=== PATIENT | male | born 1965 | race Caucasian/White ===

== ENCOUNTER 2016-11-26 15:57 | Emergency (ER) | payer MEDICAID | END 2016-11-26 18:29 | disposition left against medical advice (07) | LOC: D.ER 15:57 | DX: M54.5 Low back pain (principal) ==

== ENCOUNTER 2016-11-28 19:09 | Emergency (ER) | payer MEDICAID | END 2016-11-28 20:45 | disposition home or self-care (01) | LOC: D.ER 19:09 | DX: S01.01XA Laceration without foreign body of scalp, initial encounter (principal); W22.8XXA Striking against or struck by other objects, initial encounter; Y93.89 Activity, other specified; Y92.019 Unspecified place in single-family (private) house as the place of occurrence of the external cause; S06.0X1A Concussion with loss of consciousness of 30 minutes or less, initial encounter; I10 Essential (primary) hypertension ==

== ENCOUNTER 2017-01-18 06:02 | Emergency (ER) | payer MEDICAID | END 2017-01-18 07:16 | disposition home or self-care (01) | LOC: D.ER 06:02 | DX: M54.2 Cervicalgia (principal); I10 Essential (primary) hypertension; F17.200 Nicotine dependence, unspecified, uncomplicated; F12.10 Cannabis abuse, uncomplicated ==

== ENCOUNTER 2017-01-21 19:33 | Emergency (ER) | payer MEDICAID ==
[2017-01-21 20:13] LABS: UDS - AMPHET NEGATIVE QUAL (NEGATIVE); UDS - BARB NEGATIVE QUAL (NEGATIVE); UDS - BENZO POSITIVE QUAL (NEGATIVE); UDS - COCAINE NEGATIVE QUAL (NEGATIVE); UDS - METH NEGATIVE QUAL (NEGATIVE); UDS - OPIATE POSITIVE QUAL (NEGATIVE); UDS - PCP NEGATIVE QUAL (NEGATIVE); UDS - THC POSITIVE QUAL (NEGATIVE)
== END 2017-01-21 22:24 | disposition home or self-care (01) ==
LOC: D.ER 19:33
PROVIDERS: Surgery
DX: M19.012 Primary osteoarthritis, left shoulder (principal); M48.32 Traumatic spondylopathy, cervical region; G47.00 Insomnia, unspecified

== ENCOUNTER 2017-04-01 22:56 | Emergency (ER) | payer MEDICAID ==
[2017-04-01 23:25] LABS: BASOPHILS 0.3 % (0-2); EOSINOPHILS 2.6 % (0-7); HEMATOCRIT 42.6 % (42.0-54.0); HEMOGLOBIN 14.6 g/dL (13.5-17.5); IMMATURE GRANULOCYTES 0.4 % (0-5); LYMPHOCYTES 21.3 % (15-50); MCH 30.9 pg (26.0-34.0); MCHC 34.3 g/dL (31.0-37.0); MCV 90.1 fL (80.0-100.0); MEAN PLATELET VOLUME 10.2 fL (7.4-10.4); MONOCYTES 7.4 % (2-11); PLATELET COUNT 255 10x3/uL (130-400); RBC 4.73 10x6/uL (4.20-6.10); RDW 13.8 % (11.5-14.5); WBC 10.1 10x3/uL (4.8-10.8)
[2017-04-01 23:37] LABS: ALBUMIN 3.6 g/dL (3.4-5.0); ALKALINE PHOSPHATASE 77 U/L (46-116); ALT (SGPT) 44 U/L (10-68); BILIRUBIN - TOTAL 0.41 mg/dL (0.2-1.3); CALC OSMOLALITY 281 mosm/kg (275-300); CALCIUM 9.3 mg/dL (8.5-10.1); CHLORIDE - SERUM 106 mmol/L (98-107); GLUCOSE 107 mg/dL (74-106); POTASSIUM - SERUM 3.9 mmol/L (3.5-5.1); PROTEIN - SERUM 7.5 g/dL (6.4-8.2); SODIUM 141 mmol/L (136-145); UREA NITROGEN 16 mg/dL (7-18); eGFR NON AFRICAN AMERICAN 84 mL/min (90-120)
[2017-04-01 23:48] LABS: CHOL - HDL RATIO 3.8 ratio (2.3-4.9); CHOLESTEROL, TOTAL 189 mg/dL (0-200); CKMB 1.2 U/L (0.0-3.6); CREATINE KINASE 150 UL (21-232); HDL CHOLESTEROL 50 mg/dL (32-96); LDL CHOLESTEROL 124 mg/dL (0-100); LDL-HDL RATIO 2.5 ratio (1.5-3.5); TRIGLYCERIDE 76 mg/dL (30-200); TROPONIN-I < 0.017 ng/mL (0.000-0.060)
== END 2017-04-01 23:48 | disposition left against medical advice (07) ==
LOC: D.ER 22:56
PROVIDERS: Emergency Medicine Emergency Medical Services
DX: R07.9 Chest pain, unspecified (principal)

== ENCOUNTER 2018-02-28 11:01 | Emergency (ER) | payer MEDICAID | END 2018-02-28 12:50 | disposition home or self-care (01) | LOC: D.ER 11:01 | DX: B86 Scabies (principal); I10 Essential (primary) hypertension; F17.200 Nicotine dependence, unspecified, uncomplicated ==

== ENCOUNTER 2018-05-14 12:24 | Emergency (ER) | payer MEDICAID ==
[~2018-05-14] VITALS: Ht 185.4 cm; Wt 94.1 kg
[2018-05-14 12:28] VITALS: BP 151/113; Ht 185.4 cm; Wt 94.1 kg
[2018-05-14 13:21] LABS: BASOPHILS 0.5 % (0-2); EOSINOPHILS 3.1 % (0-7); HEMATOCRIT 44.7 % (42.0-54.0); HEMOGLOBIN 15.3 g/dL (13.5-17.5); IMMATURE GRANULOCYTES 0.4 % (0-5); LYMPHOCYTES 26.9 % (15-50); MCH 30.4 pg (26.0-34.0); MCHC 34.2 g/dL (31.0-37.0); MCV 88.9 fL (80.0-100.0); MEAN PLATELET VOLUME 10.3 fL (7.4-10.4); MONOCYTES 7.8 % (2-11); NEUTROPHILS 61.3 % (40-80); PLATELET COUNT 253 10x3/uL (130-400); RBC 5.03 10x6/uL (4.20-6.10); RDW 14.2 % (11.5-14.5); WBC 9.3 10x3/uL (4.8-10.8)
[2018-05-14 13:37] LABS: ALBUMIN 3.8 g/dL (3.4-5.0); ALKALINE PHOSPHATASE 75 U/L (46-116); ALT (SGPT) 41 U/L (10-68); BILIRUBIN - TOTAL 0.39 mg/dL (0.2-1.3); CALC OSMOLALITY 279 mosm/kg (275-300); CALCIUM 8.9 mg/dL (8.5-10.1); CARBON DIOXIDE 28.7 mmol/L (21.0-32.0); CHLORIDE - SERUM 104 mmol/L (98-107); CREATININE - SERUM 0.9 mg/dL (0.6-1.3); GLUCOSE 78 mg/dL (74-106); POTASSIUM - SERUM 3.9 mmol/L (3.5-5.1); PROTEIN - SERUM 7.7 g/dL (6.4-8.2); SODIUM 140 mmol/L (136-145); UREA NITROGEN 17 mg/dL (7-18); eGFR NON AFRICAN AMERICAN > 90 mL/min (90-120)
[2018-05-14 13:48] LABS: CKMB 0.7 U/L (0.0-3.6); CREATINE KINASE 85 UL (21-232)
[2018-05-14 14:01] LABS: TROPONIN-I < 0.017 ng/mL (0.000-0.060)
== END 2018-05-14 15:50 | disposition left against medical advice (07) ==
LOC: D.ER 12:24
PROVIDERS: Family Medicine
DX: R42 Dizziness and giddiness (principal)

== ENCOUNTER 2019-11-10 08:13 | Emergency (ER) | payer OTHER ==
[~2019-11-10] VITALS: Ht 185.4 cm; Wt 72.7 kg
[2019-11-10 08:20] VITALS: BP 140/104; Ht 185.4 cm; Wt 72.7 kg
[2019-11-10] MEDS ORDERED: NAPROSYN500 MG PO (15:23)
== END 2019-11-10 10:48 | disposition home or self-care (01) ==
LOC: D.ER 08:13
DX: F43.20 Adjustment disorder, unspecified (principal); I10 Essential (primary) hypertension; Z72.0 Tobacco use

== ENCOUNTER 2019-11-10 14:42 | Emergency (ER) | payer OTHER ==
[~2019-11-10] VITALS: Ht 185.4 cm; Wt 77.3 kg
[2019-11-10 14:46] VITALS: Ht 185.4 cm; Wt 77.3 kg
[2019-11-10] MEDS ORDERED: NAPROSYN500 MG PO (15:23)
== END 2019-11-10 15:39 | disposition home or self-care (01) ==
LOC: D.ER 14:42
DX: M54.2 Cervicalgia (principal); I25.2 Old myocardial infarction; Z72.0 Tobacco use

== ENCOUNTER → 2020-01-19 09:26 | Outpatient (CLI) | payer OTHER ==
[2019-11-10 14:46] VITALS: BMI 22.4
--- NOTE | ~2020-01-19 | ST ---
PATIENT:ANDI MEJIA MEDICAL RECORD: [id number] SEX: M LOCATION:[facility] ORDER #: ADMISSION DATE: 01/19/20 AGE OF PATIENT: 54 REFERRING PHYSICIAN: INTERPRETING PHYSICIAN: BRUNILDA JIMENEZ MD DATE OF SERVICE: 01/19/2020 PROCEDURE: Nuclear stress test. INDICATION: Chest pain, hypertension, and coronary artery disease. PROCEDURE: The patient was exercised on standard Lexiscan protocol with 33 mCi of sestamibi injected at peak stress, 11 mCi used previously for rest images. FINDINGS: Gated SPECT reveals mildly depressed, but preserved ejection fraction at 47% with decreased thickening and brightening throughout the inferior segments. SPECT imaging Cardiolite was used as myocardial perfusion agent. There is a fixed perfusion defect inferiorly. This includes the basal, mid, apical, inferior segments. There is no evidence of reversible ischemia and in fact there was improvement with the defect with stress showing reversed redistribution. The remaining segments with homogeneous uptake at rest and stress. OVERALL IMPRESSION: This is a mildly abnormal nuclear stress test only showing a fixed perfusion defect inferiorly that improves with stress. No evidence of reversible ischemia, ejection fraction lower limits of normal to mildly depressed at 47%. Continue medical management of the coronary artery disease and cardiac risk factors. TRANSINT:[id number] Voice Confirmation ID: [id number] DOCUMENT ID: [id number] BRUNILDA JIMENEZ MD CC: LUCRECIA SCHILLING [id number] DICTATION DATE: 01/21/20 1147 CLINICAL ESTHETICIAN: 01/22/20 0008 DEP CLI 01/19/20 [place] [id number] [place] [id number]
[~2020-01-19 09:26] MED LIST: NAPROSYN500 MG PO
== END | disposition home or self-care (01) ==
LOC: D.HCCARDIO 09:26
PROVIDERS: ATTEND Internal Medicine Interventional Cardiology
DX: I25.119 Atherosclerotic heart disease of native coronary artery with unspecified angina pectoris (principal)

== ENCOUNTER 2020-02-17 00:28 | Observation (INO) | payer OTHER ==
[~2020-02-17] VITALS: Ht 185.4 cm; Wt 84.1 kg
[2020-02-17] VITALS (12 sets, daily range): BP systolic 108–195; BP diastolic 63–123; Ht 185.4 cm; Wt 84.1 kg
[2020-02-17] MEDS ORDERED: DEPAKOTE500 MG PO (00:34)
[2020-02-17] MEDS ORDERED: COREG 3.1253.125 MG PO (00:34)
[2020-02-17] MEDS ORDERED: ULTRAM50 MG PO (00:35)
[2020-02-17] MEDS ORDERED: LISINOPRIL-HCT1 EAC4 PO (00:35)
[2020-02-17] MEDS ORDERED: LIPITOR20 MG PO (00:35)
--- NOTE | 2020-02-17 00:46 | NUR ---
PT HAS CALL LIGHT ON, NURSE ASKED PT WHAT SHE COULD HELP HIM WITH. PT BECAME AGGREVATED, YELLING "GODDAMN, WHY DON'T YOU YELL A LITTLE LOUDER."
--- NOTE | 2020-02-17 00:48 | NUR ---
PT REQUESTING TO TALK TO OF [facility].
--- NOTE | 2020-02-17 00:54 | NUR ---
OFFERED PT ROLL SLICING MACHINE TENDER OFFICE NUMBER AND PT REFUSED AND REQUESTED NURSE TO CALL. WHEN ASKED WHAT WAS THE REASON PT STATED FOR INFORMATION ON HUMAN TRAFFICKING.
[2020-02-17 00:59] LABS: BASOPHILS 0.5 % (0-2); EOSINOPHILS 3.1 % (0-7); HEMATOCRIT 44.8 % (42.0-54.0); HEMOGLOBIN 14.3 g/dL (13.5-17.5); IMMATURE GRANULOCYTES 0.3 % (0-5); LYMPHOCYTES 23.4 % (15-50); MCH 28.8 pg (26.0-34.0); MCHC 31.9 g/dL (31.0-37.0); MCV 90.3 fL (80.0-100.0); MEAN PLATELET VOLUME 10.8 fL (7.4-10.4); MONOCYTES 10.5 % (2-11); NEUTROPHILS 62.2 % (40-80); RBC 4.96 10x6/uL (4.20-6.10)
[2020-02-17 01:03] LABS: PLATELET COUNT 312 10x3/uL (130-400)
[2020-02-17 01:09] LABS: APTT 31.2 SECONDS (22.8-39.4); INR 0.95 (0.85-1.17); PROTIME 12.6 SECONDS (11.6-15.0)
[2020-02-17 01:15] LABS: CALC OSMOLALITY 276 mosm/kg (275-300); CALCIUM 9.1 mg/dL (8.5-10.1); CARBON DIOXIDE 26.9 mmol/L (21.0-32.0); CHLORIDE - SERUM 102 mmol/L (98-107); GLUCOSE 93 mg/dL (74-106); POTASSIUM - SERUM 3.2 mmol/L (3.5-5.1); SODIUM 137 mmol/L (136-145); UREA NITROGEN 21 mg/dL (7-18); eGFR NON AFRICAN AMERICAN 83 mL/min (90-120)
--- NOTE | 2020-02-17 01:28 | NUR ---
JAEL BRONSON #[id number] ARRIVED TO SPEAK WITH PT AT PT'S REQUEST
[2020-02-17 01:31] LABS: ALBUMIN 3.4 g/dL (3.4-5.0); ALKALINE PHOSPHATASE 78 U/L (30-120); ALT (SGPT) 36 U/L (10-68); BILIRUBIN - TOTAL 0.45 mg/dL (0.2-1.3); CKMB 7.1 U/L (0.0-3.6); CREATINE KINASE 530 UL (21-232); MAGNESIUM - SERUM 2.1 mg/dL (1.8-2.4); PROTEIN - SERUM 7.4 g/dL (6.4-8.2); TROPONIN-I 0.049 ng/mL (0.000-0.060); VALPROIC ACID (DEPAKOTE) 1.5 ug/mL (50.0-100.0)
--- NOTE | 2020-02-17 01:40 | NUR ---
THIS NURSE ATTEMPTED TO COLLECT URINE FROM PT FOR A SECOND TIME, PT STATES "YOU HAVE NOT GIVEN ME ANYTHING TO DRINK. I HAVE NOT A DROP IN ME." THIS NURSE EXPLAINED THAT D/T PT COMPLAINT OF CP, THIS NURSE CANNOT GIVE WATER YET AND WILL SPEAK TO EDP ABOUT GIVING WATER. PT THEN SAID "WHY ARE YALL BEING SO RUDE? I KNOW WHY YOU WANT MY URINE, EVERYONE HAS ACCUSED ME OF BEING ON METHANPHETAMINE. HOW DO YOU KNOW I AM NOT TRYING? ARE YOU WATCHING ME?" EXPLAINED TO PT THAT EDP ORDERED URINE TO RUN LABS, CHECK KIDNEY FUNCTION. PT STATES THAT HE WILL TRY TO URINATE.
--- NOTE | 2020-02-17 03:24 | NUR ---
DOCTOR GOODE NOTIFIED AND REVIEWED ASSESSMENT FINDINGS. DOCTOR GOODE STATES PATIENT IS A LOW RISK PER ASSESSMENT. STATES TO EDUCATE AND GIVE RESOURCES UPON DISCHARGE.
--- NOTE | 2020-02-17 04:18 | NUR ---
TO BED BUT PT REFUSES TO ANSWER QUESTIONS VS AND WIEGHT TAKEN AND IV SET AT 100 BED LOW AND CALL LIGHT EXPLAINED AND PUT IN REACH
--- NOTE | 2020-02-17 07:20 | NUR ---
RECIEVE REPORT. RESTING IN BED WITH EYES CLOSED. NO SIGNS OF DISTRESS. SINUS RYTHM ON TELEMETRY. CONTINUE PLAN OF CARE AND SAFETY PRECAUTIONS.
[2020-02-17 09:37] LABS: BILIRUBIN NEGATIVE (NEGATIVE); GLUCOSE NEGATIVE (NEGATIVE); KETONE SMALL mg/dL (NEGATIVE); NITRITE NEGATIVE (NEGATIVE); SPECIFIC GRAVITY 1.015 (1.005-1.020)
[2020-02-17 09:44] LABS: UDS - AMPHET POSITIVE QUAL (NEGATIVE); UDS - BARB NEGATIVE QUAL (NEGATIVE); UDS - BENZO POSITIVE QUAL (NEGATIVE); UDS - COCAINE NEGATIVE QUAL (NEGATIVE); UDS - OPIATE NEGATIVE QUAL (NEGATIVE); UDS - PCP NEGATIVE QUAL (NEGATIVE); UDS - THC POSITIVE QUAL (NEGATIVE)
--- NOTE | 2020-02-17 16:04 | MORECARE ---
CASE MANAGEMENT DISCHARGE SUMMARY PATIENT: ANDI MEJIAALL UNIT: [id number] ADM DATE: 02/17/20 AGE: 54 : 67 SEX: M ROOM/BED: D.2126 AUTHOR: LORI RIVER PHYSICIAN: REFERRING PHYSICIAN: ALEX GUTIERREZ MD DATE OF SERVICE: 02/17/20 Discharge Plan Patient Name: ANDI MEJIA Facility: [facility]:[place] : 1965 Planned Disposition: Psych facility Anticipated Discharge Date: Discharge Date: Expected LOS: Initial Reviewer: [email or web address] Initial Review Date: 02/17/2020 Generated: 02/17/20 5:04 pm Patient Name: ANDI MEJIA Page [phone] at 1604 All edits/amendments must be made on the electronic document DICTATION DATE: 02/17/201603 NAIL FEEDER: NICK 02/17/20 1604 RPT#: [id number] DC DATE: STATUS: ADM IN [facility] [address] [place] [address] END OF REPORT
--- NOTE | 2020-02-17 16:12 | MORECARE ---
CASE MANAGEMENT DISCHARGE SUMMARY PATIENT: ANDI MEJIA LESTER UNIT: [id number] ADM DATE: 02/17/20 AGE: 54 : 67 SEX: M ROOM/BED: D.2126 AUTHOR: ALETADOC PHYSICIAN: REFERRING PHYSICIAN: ALEX GUTIERREZ MD DATE OF SERVICE: 02/17/20 Discharge Plan Patient Name: ANDI MEJIA Facility: [facility]:[place] : 1965 Planned Disposition: Psych facility Anticipated Discharge Date: Discharge Date: Expected LOS: Initial Reviewer: [id number] Initial Review Date: 02/17/2020 Generated: 02/17/20 5:12 pm Comments DCP- Discharge Planning Updated by [id number]: Deb Bond on 02/17/20 3:[address] Patient Name: ANDI MEJIA Admission Status: ER Accout number: [id number] Admission Date: 02-17-2020 : 1965 Admission Diagnosis: Attending: ALEX GUTIERREZ Current LOS: 1 Anticipated DC Date: Planned Disposition: Psych facility Primary Insurance: [employer]ICA[employer] Discharge Planning Comments: CM met with patient to complete initial dc planning assessment. CM educated patient on the CM role and verbal consent given by patient to complete assessment. Patient is homeless. CM informed patient that Dr. Delarosa recommends inpatient psychiatric placement and patient agrees. He states he has been at [facility] before and that is his preference, however realizes that he may have to go elsewhere. He is going to have an echocardiogram, he refused his heart cath tomorrow. I will call transfer center when medically stable. CM will continue to follow and will assist as needed with dc plans/needs. Hod Carrier: Deb Bond DCPIA - Discharge Planning Initial Assessment Updated by [email or web address]: Deb Bond on 02/17/20 4:05 pm * Is the patient Alert and Oriented? Yes * PCP Dr. Mesa * Pharmacy [facility] * Preadmission Environment Homeless * ADLs Independent * Equipment None * List name and contact numbers for known caregivers / representatives who currently or will assist patient after discharge: No contact information * Community resources currently utilized None * Additional services required to return to the preadmission environment? Yes * Can the patient safely return to the preadmission environment? No * Has this patient been hospitalized within the prior 30 days at any hospital? No Last DP export: 02/17/20 3:04 p Patient Name: ANDI MEJIA Page [id number] at 1612 All edits/amendments must be made on the electronic document DICTATION DATE: 02/17/201611 INTEGRATED CIRCUIT DESIGN ENGINEER: NICK 02/17/201611 RPT#: [id number] DC DATE: STATUS: ADM IN [facility] [address] [place] [address] END OF REPORT
--- NOTE | 2020-02-17 16:22 | NUR ---
ALERT AND ORIENTED X4. SHOWER AND LINEN CHANGE COMPLETE. REFUSE HEART CATH. SINUS RYTHM ON TELEMETRY. DENIES ANY NEEDS. CONTINUE PLAN OF CARE AND SAFETY PRECAUTIONS.
--- NOTE | 2020-02-18 01:50 | NUR ---
I have reviewed this patient and I concur with the Shift Assessment completed by the Licensed Practical Nurse today this shift.
[2020-02-18 05:29] VITALS: BP 109/59
[2020-02-18 05:53] LABS: BASOPHILS 0.5 % (0-2); EOSINOPHILS 5.4 % (0-7); HEMATOCRIT 46.4 % (42.0-54.0); HEMOGLOBIN 14.8 g/dL (13.5-17.5); IMMATURE GRANULOCYTES 0.3 % (0-5); MCH 28.7 pg (26.0-34.0); MCHC 31.9 g/dL (31.0-37.0); MCV 90.1 fL (80.0-100.0); MEAN PLATELET VOLUME 10.4 fL (7.4-10.4); MONOCYTES 8.3 % (2-11); NEUTROPHILS 58.5 % (40-80); PLATELET COUNT 258 10x3/uL (130-400); RBC 5.15 10x6/uL (4.20-6.10); RDW 14.4 % (11.5-14.5); WBC 6.5 10x3/uL (4.8-10.8)
[2020-02-18 06:18] LABS: ALKALINE PHOSPHATASE 70 U/L (30-120); ALT (SGPT) 32 U/L (10-68); BILIRUBIN - TOTAL 0.34 mg/dL (0.2-1.3); CALC OSMOLALITY 274 mosm/kg (275-300); CALCIUM 8.6 mg/dL (8.5-10.1); CARBON DIOXIDE 24.6 mmol/L (21.0-32.0); CHLORIDE - SERUM 103 mmol/L (98-107); CREATININE - SERUM 0.9 mg/dL (0.6-1.3); GLUCOSE 101 mg/dL (74-106); PROTEIN - SERUM 6.9 g/dL (6.4-8.2); SODIUM 137 mmol/L (136-145); UREA NITROGEN 16 mg/dL (7-18); eGFR NON AFRICAN AMERICAN > 90 mL/min (90-120)
[2020-02-18 06:20] LABS: POTASSIUM - SERUM 3.9 mmol/L (3.5-5.1)
--- NOTE | 2020-02-18 07:35 | NUR ---
ASSESSMENT DONE. DENIES NEEDS
[2020-02-18 08:40] VITALS: BP 110/78
--- NOTE | 2020-02-18 09:39 | CN ---
PATIENT NAME:ANDI MEJIA MEDICAL RECORD: [id number] : 67 LOCATION:D.Ge D.2126 ADMIT DATE: 02/17/20 ACCOUNT: [id number] CONSULTING PHYSICIAN: RIVAS GOODE MD REFERRING PHYSICIAN: ALEX GUTIERREZ MD DATE OF CONSULTATION: 02/17/2020 PSYCHIATRIC CONSULTATION IDENTIFYING DATA: The patient is 54 years old and he is admitted to the hospital secondary to chest pain. CHIEF COMPLAINT: None. HISTORY OF PRESENT ILLNESS: The patient has behaved very bizarrely. He has had mood lability and a number of stories that sound superficially delusional. He is easily angered. He goes from crying to laughing within the space of less than a minute. He tells me a number of stories that are delusional or at least sounds delusional. 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 He knows the occupants are armed and wanting to hurt him. He feels frightened here at the hospital as well. MENTAL STATUS EXAMINATION: The patient is awake, alert and oriented to person, place and somewhat to time and situation. His mood is anxious. His affect is labile. Thought processes are disorganized and contained delusional content. He says he would not hurt himself and he does not believe he is having any paranoid delusions, but he also says that he will harm anyone who tries to harm him. By that he is saying he will use self defense to defend himself. Unfortunately, he has a generalized view that people are somehow a danger to him and this necessitates inpatient care. ASSESSMENT: 1. Schizoaffective disorder by history. 2. Polysubstance abuse. PLAN: The patient's Depakote level, which is the medication he is supposed to be taking is 1.5. Obviously, he has not been taking it at all. He did have amphetamines in his urine as well as benzodiazepine and marijuana. He does have a history of inpatient psychiatric care and has been to multiple hospitals including the [facility] in the past. Given the fact that he has this paranoid delusion that others are "after him", he is a potentially dangerous man and requires inpatient psychiatric care. He should be transferred to inpatient psychiatric care as soon as it is practical to do so. I will initiate some mood stabilizing antipsychotic medications now in anticipation of that being more adequately addressed once he is transferred to an inpatient facility. TRANSINT:[id number] Voice Confirmation ID: [id number] DOCUMENT ID: [id number] CONSULT REPORT [id number] ANDI MEJIA PETER MD at 0939 CC: [id number] DICTATION DATE: 02/17/20 1237 ASSURANCE SENIOR: 02/17/20 1538 ADM IN [facility] [address] [place] [id number]
[2020-02-18 11:29] VITALS: BP 100/72
--- NOTE | 2020-02-18 12:46 | NUR ---
I have reviewed this patient and I concur with the Shift Assessment completed by the Licensed Practical Nurse today this shift.
--- NOTE | 2020-02-18 13:07 | MORECARE ---
CASE MANAGEMENT DISCHARGE SUMMARY PATIENT: ANDI MEJIA FRANKLIN UNIT: [id number] ADM DATE: 02/17/20 AGE: 54 : 67 SEX: M ROOM/BED: D.2126 AUTHOR: ALETADOC PHYSICIAN: REFERRING PHYSICIAN: ALEX GUTIERREZ MD DATE OF SERVICE: 02/18/20 Discharge Plan Patient Name: ANDI MEJIA Facility: [facility]:[place] : 1965 Planned Disposition: Psych facility Anticipated Discharge Date: Discharge Date: Expected LOS: Initial Reviewer: [email or web address] Initial Review Date: 02/17/2020 Generated: 02/18/20 2:07 pm Comments DCP- Discharge Planning Updated by [email or web address]: Deb Bond on 02/17/20 3:[address] Patient Name: ANDI MEJIA Admission Status: ER Accout number: [id number] Admission Date: 02-17-2020 : 1965 Admission Diagnosis: Attending: ALEX GUTIERREZ Current LOS: 1 Anticipated DC Date: Planned Disposition: Psych facility Primary Insurance: [employer]ICA[employer] Discharge Planning Comments: CM met with patient to complete initial dc planning assessment. CM educated patient on the CM role and verbal consent given by patient to complete assessment. Patient is homeless. CM informed patient that Dr. Delarosa recommends inpatient psychiatric placement and patient agrees. He states he has been at [facility] before and that is his preference, however realizes that he may have to go elsewhere. He is going to have an echocardiogram, he refused his heart cath tomorrow. I will call transfer center when medically stable. CM will continue to follow and will assist as needed with dc plans/needs. Direct Chill Casting Operator: Deb Bond DCPIA - Discharge Planning Initial Assessment Updated by [email or web address]: Deb Bond on 02/17/20 4:05 pm * Is the patient Alert and Oriented? Yes * PCP Dr. Mesa * Pharmacy [facility] * Preadmission Environment Homeless * ADLs Independent * Equipment None * List name and contact numbers for known caregivers / representatives who currently or will assist patient after discharge: No contact information * Community resources currently utilized None * Additional services required to return to the preadmission environment? Yes * Can the patient safely return to the preadmission environment? No * Has this patient been hospitalized within the prior 30 days at any hospital? No External Providers External Provider: [facility] Next Contact Date: Service Request Date: Service Type: Resolution: Reviewer: Comments: Last DP export: 02/17/20 3:12 p Patient Name: ANDI MEJIA Page 24858 at 1307 All edits/amendments must be made on the electronic document DICTATION DATE: 02/18/20 1307 CLINICAL ORTHOPTIST: NICK 02/18/20 1307 RPT#: [id number] DC DATE: STATUS: ADM IN [facility] [address] [place] [address] END OF REPORT
--- NOTE | 2020-02-18 13:15 | MORECARE ---
CASE MANAGEMENT DISCHARGE SUMMARY PATIENT: ANDI MEJIAALL UNIT: [id number] ADM DATE: 02/17/20 AGE: 54 : 67 SEX: M ROOM/BED: D.2126 AUTHOR: ALETADOC PHYSICIAN: REFERRING PHYSICIAN: ALEX GUTIERREZ MD DATE OF SERVICE: 02/18/20 Discharge Plan Patient Name: ANDI MEJIA Facility: [facility]:[place] : 1965 Planned Disposition: Psych facility Anticipated Discharge Date: Discharge Date: Expected LOS: Initial Reviewer: [email or web address] Initial Review Date: 02/17/2020 Generated: 02/18/20 2:15 pm Comments DCP- Discharge Planning Updated by [email or web address]: Deb Bond on 02/18/20 12:[address] Spoke with Isabel and she states to start transfer process for inpatient psychiatric care. I called the transfer team and spoke with Gladis and clinical faxed after administration approval from Dorita (senior housekeeper). CM will continue to follow and assist with discharge planning/needs. DCP- Discharge Planning Updated by [email or web address]: Deb Bond on 02/17/20 3:[address] Patient Name: ANDI MEJIA Admission Status: ER Accout number: [id number] Admission Date: 02-17-2020 : 1965 Admission Diagnosis: Attending: ALEX GUTIERREZ Current LOS: 1 Anticipated DC Date: Planned Disposition: Psych facility Primary Insurance: [employer]ICAID Discharge Planning Comments: CM met with patient to complete initial dc planning assessment. CM educated patient on the CM role and verbal consent given by patient to complete assessment. Patient is homeless. CM informed patient that Dr. Delarosa recommends inpatient psychiatric placement and patient agrees. He states he has been at [facility] before and that is his preference, however realizes that he may have to go elsewhere. He is going to have an echocardiogram, he refused his heart cath tomorrow. I will call transfer center when medically stable. CM will continue to follow and will assist as needed with dc plans/needs. Obstetrics Scrub Nurse: Deb Bond DCPIA - Discharge Planning Initial Assessment Updated by [email or web address]: Deb Bond on 02/17/20 4:05 pm * Is the patient Alert and Oriented? Yes * PCP Dr. Mesa * Pharmacy [facility] * Preadmission Environment Homeless * ADLs Independent * Equipment None * List name and contact numbers for known caregivers / representatives who currently or will assist patient after discharge: No contact information * Community resources currently utilized None * Additional services required to return to the preadmission environment? Yes * Can the patient safely return to the preadmission environment? No * Has this patient been hospitalized within the prior 30 days at any hospital? No Last DP export: 02/18/20 12:07 p Patient Name: ANDI MEJIA Page [id number] at 1315 All edits/amendments must be made on the electronic document DICTATION DATE: 02/18/201314 BAG CHECKER: NICK 02/18/20 1315 RPT#: [id number] DC DATE: STATUS: ADM IN [facility] [address] [place] [address] END OF REPORT
[2020-02-18 20:00] VITALS: BP 116/74
--- NOTE | 2020-02-19 02:24 | NUR ---
I have reviewed this patient and I concur with the Shift Assessment completed by the Licensed Practical Nurse today this shift.
[2020-02-19 04:00] VITALS: BP 116/76
--- NOTE | 2020-02-19 05:32 | NUR ---
SPOKE WITH MATTEO, FROM THE TRANSFER CENTER, SHE INFORMED THIS NURSE THAT DR PRIETO AT [facility] WILL ACCEPT PT WITH A NEGATIVE COVID TEST. COVID SWAB DONE ORDERED AND TAKEN TO LAB.
[2020-02-19 05:58] LABS: BASOPHILS 0.6 % (0-2); EOSINOPHILS 4.8 % (0-7); HEMATOCRIT 46.6 % (42.0-54.0); IMMATURE GRANULOCYTES 0.6 % (0-5); MCHC 32.2 g/dL (31.0-37.0); MEAN PLATELET VOLUME 10.1 fL (7.4-10.4); MONOCYTES 9.6 % (2-11); NEUTROPHILS 51.4 % (40-80); PLATELET COUNT 259 10x3/uL (130-400); RBC 5.18 10x6/uL (4.20-6.10); RDW 14.2 % (11.5-14.5); WBC 6.3 10x3/uL (4.8-10.8)
[2020-02-19 06:25] LABS: ALKALINE PHOSPHATASE 74 U/L (30-120); ALT (SGPT) 26 U/L (10-68); BILIRUBIN - TOTAL 0.25 mg/dL (0.2-1.3); CALC OSMOLALITY 273 mosm/kg (275-300); CALCIUM 8.8 mg/dL (8.5-10.1); CARBON DIOXIDE 27.6 mmol/L (21.0-32.0); CHLORIDE - SERUM 101 mmol/L (98-107); CREATININE - SERUM 0.9 mg/dL (0.6-1.3); GLUCOSE 93 mg/dL (74-106); MAGNESIUM - SERUM 2.1 mg/dL (1.8-2.4); PHOSPHOROUS 4.8 mg/dL (2.5-4.9); POTASSIUM - SERUM 4.2 mmol/L (3.5-5.1); PROTEIN - SERUM 6.5 g/dL (6.4-8.2); SODIUM 136 mmol/L (136-145); UREA NITROGEN 18 mg/dL (7-18); eGFR NON AFRICAN AMERICAN > 90 mL/min (90-120)
--- NOTE | 2020-02-19 07:20 | NUR ---
ASSESSMENT DONE. DENIES NEEDS
--- NOTE | 2020-02-19 07:45 | MORECARE ---
CASE MANAGEMENT DISCHARGE SUMMARY PATIENT: ANID MEJIA RADHA UNIT: [id number] ADM DATE: 02/17/20 AGE: 54 : 67 SEX: M ROOM/BED: D.2126 AUTHOR: LORI RIVER PHYSICIAN: REFERRING PHYSICIAN: ALEX GUTIERREZ MD DATE OF SERVICE: 02/19/20 Discharge Plan Patient Name: ANDI MEJIA Facility: [facility]:[place] : 1965 Planned Disposition: Psych facility Anticipated Discharge Date: Discharge Date: Expected LOS: Initial Reviewer: [email or web address] Initial Review Date: 02/17/2020 Generated: 02/19/20 8:44 am Comments DCP- Discharge Planning Updated by [email or web address]: Deb Amarorachelle on 02/19/20 6:[address] Notified by transfer team that patient was denied by [facility] per physician denial. I informed them to continue to search for inpatient psychiatric bed. CM will continue to follow and assist with discharge planning/needs. DCP- Discharge Planning Updated by [email or web address]: Deb Amarorachelle on 02/18/20 12:[address] Spoke with Isabel and she states to start transfer process for inpatient psychiatric care. I called the transfer team and spoke with Gladis and clinical faxed after administration approval from Dorita (house visitor). CM will continue to follow and assist with discharge planning/needs. DCP- Discharge Planning Updated by [email or web address]: Deb Bond on 02/17/20 3:[address] Patient Name: ANDI MEJIA Admission Status: ER Accout number: [id number] Admission Date: 02-17-2020 : 1965 Admission Diagnosis: Attending: ALEX GUTIERREZ Current LOS: 1 Anticipated DC Date: Planned Disposition: Psych facility Primary Insurance: [employer] MEDICAID Discharge Planning Comments: CM met with patient to complete initial dc planning assessment. CM educated patient on the CM role and verbal consent given by patient to complete assessment. Patient is homeless. CM informed patient that Dr. Delarosa recommends inpatient psychiatric placement and patient agrees. He states he has been at [facility] before and that is his preference, however realizes that he may have to go elsewhere. He is going to have an echocardiogram, he refused his heart cath tomorrow. I will call transfer center when medically stable. CM will continue to follow and will assist as needed with dc plans/needs. Core Setter: Deb Bond DCPIA - Discharge Planning Initial Assessment Updated by [email or web address]: Deb Bond on 02/17/20 4:05 pm * Is the patient Alert and Oriented? Yes * PCP Dr. Mesa * Pharmacy [facility] * Preadmission Environment Homeless * ADLs Independent * Equipment None * List name and contact numbers for known caregivers / representatives who currently or will assist patient after discharge: No contact information * Community resources currently utilized None * Additional services required to return to the preadmission environment? Yes * Can the patient safely return to the preadmission environment? No * Has this patient been hospitalized within the prior 30 days at any hospital? No Last DP export: 02/18/20 12:15 p Patient Name: ANDI MEJIA Page 26169 at 0745 All edits/amendments must be made on the electronic document DICTATION DATE: 02/19/2044 GUIDANCE SERVICES COORDINATOR: DM 02/19/20 0744 RPT#: [id number] DC DATE: STATUS: ADM IN [facility] [address] [place] [address] END OF REPORT
--- NOTE | 2020-02-19 10:19 | NUR ---
I have reviewed this patient and I concur with the Shift Assessment completed by the Licensed Practical Nurse today this shift.
[2020-02-19 11:09] VITALS: BP 136/83
--- NOTE | 2020-02-19 11:10 | MORECARE ---
CASE MANAGEMENT DISCHARGE SUMMARY PATIENT: ANDI MEJIAALL UNIT: [id number] ADM DATE: 02/17/20 AGE: 54 : 67 SEX: M ROOM/BED: D.2126 AUTHOR: LORI RIVER PHYSICIAN: REFERRING PHYSICIAN: ALEX GUTIERREZ MD DATE OF SERVICE: 02/19/20 Discharge Plan Patient Name: ANDI MEJIA Facility: [facility]:[place] : 1965 Planned Disposition: Psych facility Anticipated Discharge Date: Discharge Date: Expected LOS: Initial Reviewer: [email or web address] Initial Review Date: 02/17/2020 Generated: 02/19/20 12:10 pm Comments DCP- Discharge Planning Updated by [email or web address]: Deb Bond on 02/19/20 10:[address] I have been notified that patient has been accepted by Dr. Boyle at [facility] for inpatient psychiatric unit, but he must have a negative Covid - 19 test. It has been collected. DCP- Discharge Planning Updated by [email or web address]: Deb Bond on 02/19/20 6:[address] Notified by transfer team that patient was denied by [facility] per physician denial. I informed them to continue to search for inpatient psychiatric bed. CM will continue to follow and assist with discharge planning/needs. DCP- Discharge Planning Updated by [email or web address]: Deb Bond on 02/18/20 12:[address] Spoke with Isabel and she states to start transfer process for inpatient psychiatric care. I called the transfer team and spoke with Gladis and clinical faxed after administration approval from Dorita (retail warehouse supervisor). CM will continue to follow and assist with discharge planning/needs. DCP- Discharge Planning Updated by [email or web address]: Deb Bond on 02/17/20 3:[address] Patient Name: ANDI MEJIA Admission Status: ER Accout number: [id number] Admission Date: 02-17-2020 : 1965 Admission Diagnosis: Attending: ALEX GUTIERREZ Current LOS: 1 Anticipated DC Date: Planned Disposition: Psych facility Primary Insurance: [employer]ICAID Discharge Planning Comments: CM met with patient to complete initial dc planning assessment. CM educated patient on the CM role and verbal consent given by patient to complete assessment. Patient is homeless. CM informed patient that Dr. Delarosa recommends inpatient psychiatric placement and patient agrees. He states he has been at [facility] before and that is his preference, however realizes that he may have to go elsewhere. He is going to have an echocardiogram, he refused his heart cath tomorrow. I will call transfer center when medically stable. CM will continue to follow and will assist as needed with dc plans/needs. Recruiting Operations Consultant: Deb Bond DCPIA - Discharge Planning Initial Assessment Updated by [email or web address]: Deb Bond on 02/17/20 4:05 pm * Is the patient Alert and Oriented? Yes * PCP Dr. Mesa * Pharmacy [facility] * Preadmission Environment Homeless * ADLs Independent * Equipment None * List name and contact numbers for known caregivers / representatives who currently or will assist patient after discharge: No contact information * Community resources currently utilized None * Additional services required to return to the preadmission environment? Yes * Can the patient safely return to the preadmission environment? No * Has this patient been hospitalized within the prior 30 days at any hospital? No Last DP export: 02/19/20 6:45 a Patient Name: ANDI MEJIA Page [id number] at 1110 All edits/amendments must be made on the electronic document DICTATION DATE: 02/19/20 1110 CANINE DEPUTY: NICK 02/19/20 1110 RPT#: [id number] DC DATE: STATUS: ADM IN [facility] [address] [place] [address] END OF REPORT
--- NOTE | 2020-02-19 13:01 | PN ---
PATIENT:ANDI MEJIA MEDICAL RECORD: [id number] LOCATION:D. D.212 ADMISSION DATE: 02/17/20 PROGRESS NOTE DATE OF SERVICE: 02/18/2020 SUBJECTIVE: The patient's case was discussed with staff. He has no new complaint. OBJECTIVE: The patient is in better behavioral control. He is still delusional and showing mood lability. He denies that he would seek to harm himself or others. ASSESSMENT: Schizoaffective disorder, bipolar type. PLAN: Current medicines have been reviewed and will be maintained. I recommend he be transferred to acute inpatient psychiatric care as soon as it is possible to do so. TRANSINT:[id number] Voice Confirmation ID: [id number] DOCUMENT ID: [id number] RIVAS GOODE MD at 1301 CC: [id number] DICTATION DATE: 02/18/20 1646 MEDICAL HOSPITAL SALES: 02/19/20 0034 ADM IN [facility] [address] [place] [id number]
[2020-02-19 13:49] VITALS: BP 123/91
[2020-02-19 18:31] VITALS: BP 102/74
[2020-02-19 20:00] VITALS: BP 124/87
--- NOTE | 2020-02-20 02:49 | NUR ---
I have reviewed this patient and I concur with the Shift Assessment completed by the Licensed Practical Nurse today this shift.
[2020-02-20 04:00] VITALS: BP 115/77
[2020-02-20 05:32] LABS: BASOPHILS 0.6 % (0-2); EOSINOPHILS 4.5 % (0-7); HEMATOCRIT 48.9 % (42.0-54.0); HEMOGLOBIN 15.7 g/dL (13.5-17.5); IMMATURE GRANULOCYTES 0.7 % (0-5); LYMPHOCYTES 29.7 % (15-50); MCHC 32.1 g/dL (31.0-37.0); MCV 90.4 fL (80.0-100.0); MEAN PLATELET VOLUME 10.2 fL (7.4-10.4); MONOCYTES 8.3 % (2-11); NEUTROPHILS 56.2 % (40-80); PLATELET COUNT 268 10x3/uL (130-400); RBC 5.41 10x6/uL (4.20-6.10); RDW 14.3 % (11.5-14.5); WBC 7.1 10x3/uL (4.8-10.8)
[2020-02-20 06:30] LABS: ALBUMIN 3.2 g/dL (3.4-5.0); ALKALINE PHOSPHATASE 71 U/L (30-120); BILIRUBIN - TOTAL 0.26 mg/dL (0.2-1.3); CALC OSMOLALITY 274 mosm/kg (275-300); CALCIUM 8.9 mg/dL (8.5-10.1); CARBON DIOXIDE 28.4 mmol/L (21.0-32.0); CHLORIDE - SERUM 99 mmol/L (98-107); CREATININE - SERUM 0.9 mg/dL (0.6-1.3); GLUCOSE 95 mg/dL (74-106); MAGNESIUM - SERUM 2.2 mg/dL (1.8-2.4); PHOSPHOROUS 4.5 mg/dL (2.5-4.9); POTASSIUM - SERUM 4.3 mmol/L (3.5-5.1); SODIUM 136 mmol/L (136-145); UREA NITROGEN 21 mg/dL (7-18); eGFR NON AFRICAN AMERICAN > 90 mL/min (90-120)
[2020-02-20 06:33] LABS: ALT (SGPT) 34 U/L (10-68)
--- NOTE | 2020-02-20 07:50 | NUR ---
ASSESSMENT DONE. DENIES NEEDS
[2020-02-20 08:27] VITALS: BP 114/78
[2020-02-20 11:52] VITALS: BP 115/73
[2020-02-20 15:44] VITALS: BP 123/85
[2020-02-20 20:30] VITALS: BP 136/84
--- NOTE | 2020-02-21 00:04 | NUR ---
INITIAL ORUNDS COMPLETED AT 1915 HRS. PT RESTING WITH EYES CLOSED. RESP EVEN AND REGULAR. ASSESSMENT COMPLETED AT 2205 HRS. VSS. REFUSES TELEMETRY. ALERT AND ORIENTED TO PERSON, PLACE AND TIME. CUEVAS. IV TO RAC OCCLUDED. DC'D WITH CATHETER INTACT. PT REFUSED ANOTHER IV. LUNGS DIMINISHED IN BASES BILAT. PT CURRENTLY RESTING WITH EYES CLOSED. RESP EVEN AND REGULAR. SR UP X2, CALL LIGHT WITHIN REACH.
[2020-02-21 00:30] VITALS: BP 102/73
--- NOTE | 2020-02-21 01:48 | NUR ---
PT RESTING WITH EYES CLOSED. RESP EVEN AND REGULAR. SR UP X1, CALL LIGHT WITHIN REACH.
--- NOTE | 2020-02-21 04:14 | NUR ---
PT RESTING WITH EYES CLOSED. RESP EVEN AND REGULAR. SR UP X2, CALL LIGHT WITHIN REACH.
[2020-02-21 04:45] VITALS: BP 109/78
[2020-02-21 05:13] LABS: BASOPHILS 0.4 % (0-2); EOSINOPHILS 3.1 % (0-7); HEMATOCRIT 48.6 % (42.0-54.0); HEMOGLOBIN 15.8 g/dL (13.5-17.5); IMMATURE GRANULOCYTES 0.5 % (0-5); LYMPHOCYTES 23.8 % (15-50); MCH 29.2 pg (26.0-34.0); MCHC 32.5 g/dL (31.0-37.0); MCV 89.8 fL (80.0-100.0); MEAN PLATELET VOLUME 10.2 fL (7.4-10.4); MONOCYTES 7.2 % (2-11); PLATELET COUNT 262 10x3/uL (130-400); RBC 5.41 10x6/uL (4.20-6.10); RDW 14.4 % (11.5-14.5); WBC 8.5 10x3/uL (4.8-10.8)
[2020-02-21 06:12] LABS: ALBUMIN 3.1 g/dL (3.4-5.0); ALKALINE PHOSPHATASE 68 U/L (30-120); ALT (SGPT) 32 U/L (10-68); BILIRUBIN - TOTAL 0.41 mg/dL (0.2-1.3); CALC OSMOLALITY 273 mosm/kg (275-300); CALCIUM 8.9 mg/dL (8.5-10.1); CARBON DIOXIDE 24.7 mmol/L (21.0-32.0); CHLORIDE - SERUM 98 mmol/L (98-107); GLUCOSE 96 mg/dL (74-106); MAGNESIUM - SERUM 2.2 mg/dL (1.8-2.4); POTASSIUM - SERUM 4.3 mmol/L (3.5-5.1); PROTEIN - SERUM 7.4 g/dL (6.4-8.2); SODIUM 135 mmol/L (136-145); UREA NITROGEN 24 mg/dL (7-18); eGFR NON AFRICAN AMERICAN 83 mL/min (90-120)
--- NOTE | 2020-02-21 06:24 | NUR ---
VSS THROUGHOTU NIGHT. PT DENIED ANY DISCOMFORT. NEEDS MET; WILL CONTINUE TO MONITOR.
--- NOTE | 2020-02-21 07:10 | NUR ---
REPORT RECEIVED FROM CLINICAL NURSING INSTRUCTOR AND PATIENT CARE ASSUMED. PATIENT LAYING IN BED ON RT SIDE WITH EYES CLOSED AND BREATHING EVENLY. WILL CONTINUE WITH PLAN OF CARE. SR UPX 2 BED IN LOW POSITION AND CALL LIGHT IN REACH.
[2020-02-21 10:10] VITALS: BP 136/59
[2020-02-21 12:00] VITALS: BP 111/79
--- NOTE | 2020-02-21 14:38 | NUR ---
PATIENT LAYING IN BED WATCHING TV. PATIENT IS STABLE AND VSS. PATIENT DENIES ANY NEEDS OR PAIN. CM HAS MET WITH PATIENT AND TRANSFER TO [facility] INPATIENT PSYCH UNIT IN PLACE. CM WILL NOTIFY WHEN PATIENT CAN BE TRANSFERED.
[2020-02-21 16:00] VITALS: BP 119/77
--- NOTE | 2020-02-21 20:23 | NUR ---
INITIAL ROUNDS COMPLETED AT 191 HRS. PT RESTING WITH EYES CLOSED. RESP EVEN AND REGULAR. ASSESSMENT COMPLETED AT 193 HRS. NO IV. ALERT AND ORIENTED TO PERSON, PLACE AND TIME. CUEVAS. LUNGS DIMINISHED IN BASES BILAT. PT VERY COOPERATIVE. CALL LIGHT WITHIN REACH.
[2020-02-21 20:30] VITALS: BP 110/71
--- NOTE | 2020-02-21 22:07 | NUR ---
PM MEDS GIVEN. PT CURRENTLY RESTING WITH EYES CLOSED. RESP EVEN AND REGULAR. SR UP X1, CALL LIGHT WITHIN REACH.
--- NOTE | 2020-02-22 00:34 | NUR ---
PT RESTING WITH EYES CLOSED. RESP EVEN AND REGULAR. CALL LIGHT WITHIN REACH.
--- NOTE | 2020-02-22 02:10 | NUR ---
PT RESTING WITH EYES CLOSED. RESP EVEN AND REGULAR. CALL LIGHT WITHIN REACH.
--- NOTE | 2020-02-22 04:01 | NUR ---
PT RESTING WITH EYES CLOSED. RESP EVEN AND REGULAR. SR UP X2, CALL LIGHT WITHIN REACH.
[2020-02-22 04:30] VITALS: BP 103/72
--- NOTE | 2020-02-22 06:23 | NUR ---
VSS THROUGHOUT NIGHT. PT DENIED ANY DISCOMFORT. NEEDS MET; WILL CONTINUE TO MONITOR.
[2020-02-22 06:56] LABS: BASOPHILS 0.9 % (0-2); EOSINOPHILS 4.2 % (0-7); HEMATOCRIT 47.2 % (42.0-54.0); HEMOGLOBIN 15.3 g/dL (13.5-17.5); IMMATURE GRANULOCYTES 0.9 % (0-5); LYMPHOCYTES 32.2 % (15-50); MCH 29.1 pg (26.0-34.0); MCHC 32.4 g/dL (31.0-37.0); MCV 89.9 fL (80.0-100.0); MEAN PLATELET VOLUME 10.3 fL (7.4-10.4); MONOCYTES 10.1 % (2-11); NEUTROPHILS 51.7 % (40-80); PLATELET COUNT 273 10x3/uL (130-400); RBC 5.25 10x6/uL (4.20-6.10); RDW 14.3 % (11.5-14.5)
[2020-02-22 07:19] LABS: ALKALINE PHOSPHATASE 65 U/L (30-120); ALT (SGPT) 24 U/L (10-68); BILIRUBIN - TOTAL 0.32 mg/dL (0.2-1.3); CALC OSMOLALITY 270 mosm/kg (275-300); CHLORIDE - SERUM 100 mmol/L (98-107); GLUCOSE 88 mg/dL (74-106); PHOSPHOROUS 3.5 mg/dL (2.5-4.9); POTASSIUM - SERUM 4.2 mmol/L (3.5-5.1); PROTEIN - SERUM 7.1 g/dL (6.4-8.2); SODIUM 135 mmol/L (136-145); UREA NITROGEN 19 mg/dL (7-18); eGFR NON AFRICAN AMERICAN 83 mL/min (90-120)
--- NOTE | 2020-02-22 07:20 | NUR ---
RECIEVE REPORT. RESTING IN BED WITH EYES CLOSED. NO SIGNS OF DISTRESS. CONTINUE PLAN OF CARE AND SAFETY PRECAUTIONS.
[2020-02-22 09:00] VITALS: BP 128/91
[2020-02-22 12:00] VITALS: BP 107/72
--- NOTE | 2020-02-22 15:13 | MORECARE ---
CASE MANAGEMENT DISCHARGE SUMMARY PATIENT: ANDI MEJIAALL UNIT: [id number] ADM DATE: 02/17/20 AGE: 54 : 67 SEX: M ROOM/BED: D.3676 AUTHOR: ALETA,DOC PHYSICIAN: REFERRING PHYSICIAN: ALEX GUTIERREZ MD DATE OF SERVICE: 02/22/20 Discharge Plan Patient Name: ANDI MEJIA Facility: [facility]:[place] : 1965 Planned Disposition: Psych facility Anticipated Discharge Date: Discharge Date: Expected LOS: Initial Reviewer: [email or web address] Initial Review Date: 02/17/2020 Generated: 02/22/20 4:12 pm Comments DCP- Discharge Planning Updated by [email or web address]: Helen Pena on 02/22/20 2:[address] He was accepted to inpatient psychiatric facility at [facility] by Dr. Boyle, but he must have a negative Covid19 test first. COVID TEST STILL PENDING DCP- Discharge Planning Updated by [id number]: Deb Bond on 02/19/20 10:[address] I have been notified that patient has been accepted by Dr. Boyle at [facility] for inpatient psychiatric unit, but he must have a negative Covid - 19 test. It has been collected. DCP- Discharge Planning Updated by [id number]: Deb Bond on 02/19/20 6:[address] Notified by transfer team that patient was denied by [facility] per physician denial. I informed them to continue to search for inpatient psychiatric bed. CM will continue to follow and assist with discharge planning/needs. DCP- Discharge Planning Updated by [email or web address]: Deb Bond on 02/18/20 12:[address] Spoke with Isabel and she states to start transfer process for inpatient psychiatric care. I called the transfer team and spoke with Gladis and clinical faxed after administration approval from Dorita (housekeeping manager). CM will continue to follow and assist with discharge planning/needs. DCP- Discharge Planning Updated by [email or web address]: Deb Bond on 02/17/20 3:[address] Patient Name: ANDI MEJIA Admission Status: ER Accout number: [id number] Admission Date: 02-17-2020 : 1965 Admission Diagnosis: Attending: ALEX GUTIERREZ Current LOS: 1 Anticipated DC Date: Planned Disposition: [facility] facility Primary Insurance: [facility] MANAGED MEDICAID Discharge Planning Comments: CM met with patient to complete initial dc planning assessment. CM educated patient on the CM role and verbal consent given by patient to complete assessment. Patient is homeless. CM informed patient that Dr. Delarosa recommends inpatient psychiatric placement and patient agrees. He states he has been at [facility] before and that is his preference, however realizes that he may have to go elsewhere. He is going to have an echocardiogram, he refused his heart cath tomorrow. I will call transfer center when medically stable. CM will continue to follow and will assist as needed with dc plans/needs. Mixer Lever Operator: Deb Bond DCPIA - Discharge Planning Initial Assessment Updated by [id number]: Deb Bond on 02/17/20 4:05 pm * Is the patient Alert and Oriented? Yes * PCP Dr. Mesa * Pharmacy [facility] * Preadmission Environment Homeless * ADLs Independent * Equipment None * List name and contact numbers for known caregivers / representatives who currently or will assist patient after discharge: No contact information * Community resources currently utilized None * Additional services required to return to the preadmission environment? Yes * Can the patient safely return to the preadmission environment? No * Has this patient been hospitalized within the prior 30 days at any hospital? No Last DP export: 02/19/20 10:10 a Patient Name: ANDI MEJIA Page [id number] at 1513 All edits/amendments must be made on the electronic document DICTATION DATE: 02/22/20 151 REGISTERED REPRESENTATIVE: NICK 02/22/20 151 RPT#: [id number] DC DATE: STATUS: ADM IN [facility] [address] [place] [address] END OF REPORT
--- NOTE | 2020-02-22 16:26 | PN ---
PATIENT:ANDI MEJIA MEDICAL RECORD: [id number] LOCATION:D. D.212 ADMISSION DATE: 02/17/20 PROGRESS NOTE DATE OF SERVICE: 02/19/2020 SUBJECTIVE: The patient's case was discussed with staff. He has no new complaint. OBJECTIVE: The patient continues to be anxious and somewhat irritable. He has pretty limited insight about his situation and is reporting a very high degree of distress. He still displaying the mood lability. 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 This situation still sounds very delusional. He does have a history of chronic mental illness as well as his substance abuse and a clear personality disorder. ASSESSMENT: 1. Schizoaffective disorder. 2. Polysubstance abuse. PLAN: The patient is in need of inpatient psychiatric care. He should be transferred to an inpatient psychiatric unit as soon as it is reasonably practical to do so. He has no evidence of an upper respiratory infection. I think it is unwarranted to demand that he test negative for COVID-19 prior to transfer. TRANSINT:[id number] Voice Confirmation ID: [id number] DOCUMENT ID: [id number] RIVAS GOODE MD at 1626 CC: [id number] DICTATION DATE: 02/19/20 174 CHIEF KNOWLEDGE OFFICER: 02/19/20 2326 ADM IN [place] [id number] [place] [address]
--- NOTE | 2020-02-22 16:33 | NUR ---
DATE PITTER ARRIVES TO ROOM FOR VITALS. PATIENT NOT IN ROOM. ER CALLED. SITTERS AT DOOR INFORM DATE PITTER PATIENT SEEN LEAVING BUILDING. EMPLOYMENT SECURITY OFFICER NOTIFIED. COVID TEST NOT YET RESULTED FOR TRANSFER TO INPATIENT PSYCH PLACEMENT. POLICE NOTIFIED OF PSYCH PATIENT AMA.
--- NOTE | 2020-02-22 18:58 | MORECARE ---
CASE MANAGEMENT DISCHARGE SUMMARY PATIENT: ANDI MEJIA UNIT: [id number] ADM DATE: 02/17/20 AGE: 54 : 67 SEX: M ROOM/BED: D.2126 AUTHOR: ALETA,LORI PHYSICIAN: REFERRING PHYSICIAN: ALEX GUTIERREZ MD DATE OF SERVICE: 02/22/20 Discharge Plan Patient Name: ANDI MEJIA Facility: [facility]:[place] : 1965 Planned Disposition: Psych facility Anticipated Discharge Date: Discharge Date: 02/22/2020 Expected LOS: Initial Reviewer: [email or web address] Initial Review Date: 02/17/2020 Generated: 02/22/20 7:57 pm Comments DCP- Discharge Planning Updated by [id number]: Helen Pena on 02/22/20 2:[address] He was accepted to inpatient psychiatric facility at [facility] by Dr. Boyle, but he must have a negative Covid19 test first. COVID TEST STILL PENDING DCP- Discharge Planning Updated by [email or web address]: Deb Bond on 02/19/20 10:[address] I have been notified that patient has been accepted by Dr. Boyle at [facility] for inpatient psychiatric unit, but he must have a negative Covid - 19 test. It has been collected. DCP- Discharge Planning Updated by [email or web address]: Deb Bond on 02/19/20 6:[address] Notified by transfer team that patient was denied by [facility] per physician denial. I informed them to continue to search for inpatient psychiatric bed. CM will continue to follow and assist with discharge planning/needs. DCP- Discharge Planning Updated by [email or web address]: Deb Bond on 02/18/20 12:[address] Spoke with Isabel and she states to start transfer process for inpatient psychiatric care. I called the transfer team and spoke with Gladis and clinical faxed after administration approval from Dorita (feed house supervisor). CM will continue to follow and assist with discharge planning/needs. DCP- Discharge Planning Updated by [id number]: Deb Bond on 02/17/20 3:[address] Patient Name: ANDI MEJIA Admission Status: ER Accout number: [id number] Admission Date: 02-17-2020 : 1965 Admission Diagnosis: Attending: ALEX GUTIERREZ Current LOS: 1 Anticipated DC Date: Planned Disposition: [facility] facility Primary Insurance: [facility] MANAGED MEDICAID Discharge Planning Comments: CM met with patient to complete initial dc planning assessment. CM educated patient on the CM role and verbal consent given by patient to complete assessment. Patient is homeless. CM informed patient that Dr. Delarosa recommends inpatient psychiatric placement and patient agrees. He states he has been at [facility] before and that is his preference, however realizes that he may have to go elsewhere. He is going to have an echocardiogram, he refused his heart cath tomorrow. I will call transfer center when medically stable. CM will continue to follow and will assist as needed with dc plans/needs. Data Power Consultant: Deb Varun DCPIA - Discharge Planning Initial Assessment Updated by [email or web address]: Deb Bond on 02/17/20 4:05 pm * Is the patient Alert and Oriented? Yes * PCP Dr. Mesa * Pharmacy [facility] * Preadmission Environment Homeless * ADLs Independent * Equipment None * List name and contact numbers for known caregivers / representatives who currently or will assist patient after discharge: No contact information * Community resources currently utilized None * Additional services required to return to the preadmission environment? Yes * Can the patient safely return to the preadmission environment? No * Has this patient been hospitalized within the prior 30 days at any hospital? No Last DP export: 02/22/20 2:13 pm Patient Name: ANDI MEJIA Page [phone] at 1858 All edits/amendments must be made on the electronic document DICTATION DATE: 02/22/201856 FREIGHT TEAM ASSOCIATE: NICK 02/22/201856 RPT#: [id number] DC DATE:02/22/20 STATUS: DIS IN [facility] [address] [place] [address] END OF REPORT
--- NOTE | 2020-02-23 10:54 | EC ---
PATIENT:ANDI MEJIA DATE OF SERVICE: 02/17/20 SEX: M MEDICAL RECORD: [id number] DATE OF : [birth year] LOCATION:D.M2 D.212 AGE OF PATIENT: 54 ADMISSION DATE: 02/17/20 REFERRING PHYSICIAN: INTERPRETING PHYSICIAN: DORIS LOCKWOOD MD ECHOCARDIOGRAM REPORT ECHO CHARGES 4 ECHO COMPLETE Date: 02/18/20 CLINICAL DIAGNOSIS: CHEST PAIN, CAD ECHOCARDIOGRAPHIC MEASUREMENTS (adult normal given) AC root (d.<3.7cm) 3.8 cm LV Septum d (<1.2 cm> 1.5 cm Valve Excursion 1.6 cm LV Septum (systole) 1.7 cm Left Atria (s.<4.0cm> 4.5 cm LVPW d(<1.2cm) 1.7 cm RV (d.<2.3cm) 3.3 cm LVPW (sytole) 1.9 cm LV diastole(<5.6CM) 5.4 cm MV E-F(>70mm/sec) cm LV systole 3.5 cm LVOT Diameter 2.4 cm MV exc.(>10mm) 1.7 cm Est.ejection fraction (50-75%) % DOPPLER: LVIT cm/sec A 72.0 cm/sec E 48.0 cm/sec LA cm/sec RVSP 22 mmHg LVOT 79 cm/sec AOP1/2T m/s Asc. Ao 112 cm/sec RVOT 72 cm/sec RA cm/sec PA 77 cm/sec AV Gradient Peak 5.04 mmHg AV Mean 3.43 mmHg AV Area 3.2 cm MV Gradient Peak 2.53 mmHg MV Mean 1.04 mmHg MV Area cm COMMENTS: Application Release Manager: 2 FRED LEON Lead Software Architect: 3 Dr. Clancy TAPE# PACS Pericardial Effusion N DATE OF SERVICE: Adequate 2D, color flow imaging, spectral Doppler, and M-Mode. LVH is present. LV internal dimensions are normal. Wall motion is normal. EF is greater than or equal to 55%. Aortic valve is tricuspid. No evidence of stenosis by Doppler interrogation. Left atrium is normal. Mitral valve shows no prolapse. Mild MR. Right-sided chambers are grossly normal. Trace TR. TRANSINT:[id number] Voice Confirmation ID: [id number] DOCUMENT ID: [id number] ECHOCARDIOGRAM REPORT [id number] ANDI MEJIA GREGORY A MD at 1054 CC: [id number] DICTATION DATE: 02/19/20 1319 SAFETY AND SECURITY OFFICER: 02/19/20 1514 DIS IN 02/22/20 [place] [id number] [place] [id number]
== END 2020-02-22 17:18 | disposition left against medical advice (07) ==
LOC: D.ER 00:28 → D.M2 02:50 → OBSVTIME 02:50 → D.M2 02-22 17:18
PROVIDERS: Family Medicine; ADMIT Family Medicine; ATTEND Family Medicine
DX: I25.119 Atherosclerotic heart disease of native coronary artery with unspecified angina pectoris (principal); F17.203 Nicotine dependence unspecified, with withdrawal; I16.0 Hypertensive urgency; E87.6 Hypokalemia; F15.10 Other stimulant abuse, uncomplicated; E78.5 Hyperlipidemia, unspecified; Z59.0 Homelessness